=== PATIENT | male | born 1980 | race American Indian/Alaskan Native ===

== ENCOUNTER 2016-09-23 10:08 | Emergency (ER) | payer SELFPAY ==
[2016-09-23 10:24] VITALS: BP 137/95
--- NOTE | 2016-09-23 13:22 | Emergency Department Report ---
Chief Complaint: Urogenital-Male Stated Complaint: PAIN UNDER TESTICLE Time Seen by Provider: 09/23/16 13:09 - HPI History of Present Illness: Patient here complaining of pain between his testicles and his anal area that started yesterday morning. He said he got some relief with Tylenol. He is pointing to is para knee him area. Denies any testicular pain or swelling. Denies any injury or redness. Denies any urinary burning frequency or urgency. Denies any blood in his urine. Denies any trauma. Denies any fever or penile discharge. Denies any blood in his urine. Patient is and he said he is not concerned about STDs. Reports pain 6 out of 10. - ROS Review of Systems: All systems are negative unless stated in HPI above. - Exam Vital Signs: Vital Signs 09/23/16 10:15 Temperature 98.7 F Pulse Rate 60 Respiratory 15 Rate Blood Pressure 137/95 O2 Sat by Pulse 98 Oximetry Physical Exam: GENERAL: Is a 35-year-old male well-nourished well-developed nontoxic in appearance. CV: S1, S2. Regular rate rhythm negative murmur. GI: Non-Tender to palpate in all quadrants, no guarding or rebound tenderness. No CVA tenderness. Sounds in all quadrants. Male genitourinary: No testicular tenderness or swelling. Scrotal swelling. No nodules or masses felt to testicle. Testicle and scrotum exam normal. No penile rash or lesions. No penile discharge. No inguinal adenopathy. No erythema or induration noted to perineal area. Area nontender to palpate. Skin: Clean dry and intact. Rash or lesions noted. MSE screening note: Focused history and physical exam performed. Due to findings the following was ordered:TBD ED Disposition for MSE Disposition: MEDICAL SCREENING EXAM-LEFT Condition: Stable Referrals: PRIMARY CARE, [Primary Care Provider] - 3-5 Days
== END 2016-09-23 13:35 | disposition left against medical advice (07) ==
LOC: ED 10:08
DX: N50.89 Other specified disorders of the male genital organs (principal); Z53.21 Procedure and treatment not carried out due to patient leaving prior to being seen by health care provider